=== PATIENT | male | born 1950 | race Two or more races ===

== ENCOUNTER → 2017-01-25 | Outpatient (CLI) | payer OTHER | LOC: FIMAGING 09:44 | PROVIDERS: ATTEND Internal Medicine | DX: R22.1 Localized swelling, mass and lump, neck (principal) ==

== ENCOUNTER → 2017-01-26 | Outpatient (CLI) | payer OTHER ==
[~2017-01-26] MED LIST: LIDOCAINE 1% 300 MG/30 ML SDV ONE
[2017-01-28 15:15] LABS: FINAL DIAGNOSIS See Comments; MICROSCOPIC DESCRIPTION See Comments
== END ==
LOC: FIMAGING 10:19
PROVIDERS: ATTEND Internal Medicine
PROC: BH4CZZZ Ultrasonography of Head and Neck (ICD-10-PCS; principal; 2017-01-26)
PROC: 0JB43ZX Excision of Right Neck Subcutaneous Tissue and Fascia, Percutaneous Approach, Diagnostic (ICD-10-PCS; principal; 2017-01-26)
DX: R22.1 Localized swelling, mass and lump, neck (principal)
CPT/HCPCS: 88184-90; 88185-91

== ENCOUNTER → 2017-04-06 | Outpatient (CLI) | payer OTHER, MEDICARE | LOC: FIMAGING 10:25 | PROVIDERS: ATTEND Internal Medicine | DX: R79.89 Other specified abnormal findings of blood chemistry (principal); Z85.810 Personal history of malignant neoplasm of tongue ==

== ENCOUNTER 2017-05-12 08:55 | Day surgery (SDC) | payer OTHER, MEDICARE ==
[~2017-05-12 08:55] MED LIST changes: -LIDOCAINE 1% 300 MG/30 ML SDV ONE; +cefOXitin SODIUM 2 GM in STERILE WATER INJ 21 ML IV ONE
[2017-05-12] MEDS ORDERED: LR 1,000 ML IV ONE (09:40)
[2017-05-12] MEDS ORDERED: BACITRACIN ZINC 14.2 GM OINTTUBE TP ONE (10:16)
[2017-05-12] MEDS ORDERED: LIDOCAINE 1% 300 MG/30 ML SDV ONE (10:17)
[2017-05-12] MEDS ORDERED: SODIUM BICARBONATE 10 MEQ/10 ML SYR IVP ONE (10:18)
[2017-05-12] MEDS ORDERED: BUPIVACAINE 0.5% 30 ML SDV ONE (10:19)
[2017-05-12] MEDS ORDERED: PROPOFOL 200 MG/20 ML VIAL ONE ×2 (11:27→11:39)
[2017-05-12] MEDS ORDERED: fentaNYL 100 MCG/2 ML INJ ONE (11:27)
[2017-05-12] MEDS ORDERED: LIDOCAINE 2% 5 ML SDV ONE (11:32)
[2017-05-12] MEDS ORDERED: ROCURONIUM 50 MG/5 ML VIAL ONE (11:33)
[2017-05-12] MEDS ORDERED: DEXAMETHASONE 4 MG/ML VIAL ONE (11:33)
[2017-05-12] MEDS ORDERED: ONDANSETRON 4 MG/2 ML VIAL IVP PRN (11:50)
[2017-05-12] MEDS ORDERED: LABETALOL HCL 5 MG/ML 20 ML MDV IVP PRN (11:50)
[2017-05-12] MEDS ORDERED: OXYCODONE/APAP 5/325 TAB PO PRN (11:50)
[2017-05-12] MEDS ORDERED: fentaNYL 100 MCG/2 ML INJ IVP PRN (11:50)
[2017-05-12] MEDS ORDERED: HYDROCODONE/APAP 5/325 TAB PO PRN (11:50)
[2017-05-12] MEDS ORDERED: NALOXONE HCL 0.4 MG/ML INJ IVP PRN (11:50)
[2017-05-12] MEDS ORDERED: LR 500 ML IV PRN (11:50)
[2017-05-12] MEDS ORDERED: ACETAMINOPHEN 500 MG TAB PO PRN (11:50)
[2017-05-12] MEDS ORDERED: PHENYLEPHRINE HCL 100 MCG/ML SYR IVP PRN (11:50)
[2017-05-12] MEDS ORDERED: HYDROmorphONE/DILAUDID 1 MG/ML INJ IVP PRN (11:50)
[2017-05-12] MEDS ORDERED: ALBUTEROL 3 ML DEYVIAL IH PRN (11:50)
[2017-05-12] MEDS ORDERED: METOCLOPRAMIDE 10 MG/2 ML VIAL IVP PRN (11:50)
[2017-05-12] MEDS ORDERED: PROMETHAZINE HCL 25 MG/ML INJ IVP PRN (11:50)
--- NOTE | 2017-05-12 11:50 | PDANEPAE ---
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 ANE Past Medical History - Cardiovascular History Hx Hypertension: Yes Hx Arrhythmias: No Hx Chest Pain: No Hx Coronary Artery / Peripheral Vascular Disease: No Hx CHF / Valvular Disease: No Hx Palpitations: No - Pulmonary History Hx COPD: No Hx Asthma/Reactive Airway Disease: No Hx Recent Upper Respiratory Infection: No Hx Oxygen in Use at Home: No Hx Sleep Apnea: No - Neurologic History Hx Cerebrovascular Accident: No Hx Seizures: No Hx Dementia: No - Endocrine History Hx Diabetes: No Hypothyroid: No Obesity: yes - Renal History Hx Renal Disorders: No - Liver History Hx Hepatic Disorders: No - Neurological & Psychiatric Hx Hx Neurological and Psychiatric Disorders: Yes - Cancer History Hx Cancer: Yes Cancer History Comment: oropharangeal cancer - Congenital Disorder History Hx Congenital Disorders: No - GI History GERD: moderate Hx Gastrointestinal Disorders: No - Surgical History Prior Surgeries: hernia 2014 ANE Review of Systems Review of systems is: negative Review of Systems: - Exercise capacity METS (RN): 4 METS ANE Patient History - Allergies Allergies/Adverse Reactions: No Allergies [NKDA] Allergy (Verified 05/10/17 14:34) - Home Medications Home medications: home medication list seen and reviewed Home Medications: Aspirin 325 mg (*) 650 05/12/17 [Last Taken 05/12/17] Atorvastatin Calcium 05/12/17 [Last Taken 05/12/17] CALCI-MIX 05/12/17 [Last Taken 05/12/17] IBUPROFEN 400 05/12/17 [Last Taken 05/12/17] Lisinopril 20 05/12/17 [Last Taken 05/12/17] Metoprolol Tartrate 25 05/12/17 [Last Taken 05/12/17] Multi-Vitamin Daily 05/12/17 [Last Taken 05/12/17] - NPO status NPO Since - Liquids (Date): 05/12/17 NPO Since - Liquids (Time): 06:30 NPO Since - Solids (Date): 05/11/17 NPO Since - Solids (Time): 23:00 - Anes Hx Anes Hx: no prior problems - Smoking Hx Smoking Status: Never smoked - Family Anes Hx Family Hx Anesthesia Complications: no ANE Labs/Vital Signs - Vital Signs Blood Pressure: 98/65 Heart Rate: 84 Respiratory Rate: 18 O2 Sat (%): 93 Height: 175.26 cm Weight: 89.358 kg ANE Physical Exam - Airway Neck exam: FROM Mallampati Score: Class 2 Mouth exam: normal dental/mouth exam - Pulmonary Pulmonary: no respiratory distress - Cardiovascular Cardiovascular: regular rate and rhythym - ASA Status ASA Status: III ANE Anesthesia Plan Anesthesia Plan: general endotracheal anesthesia Specialized Airway: video laryngoscope Urgent/Emergent Case: Casper whaley completed preop but documented later for safe timely pt care
--- NOTE | 2017-05-12 11:55 | POSTANESTH ---
Post Anesthetic Evaluation Cardiovascular Status: Normal, Stable Respiratory Status: Requires Airway Assist Level of Consciousness/Mental Status: Can Participate in Eval Pain Control: Adequate, Prn Tx Ordered Nausea/Vomiting Control: Adequate, Prn Tx Ordered Complications Possibly Related to Anesthesia: None Noted
[2017-05-12] MEDS ORDERED: SUGAMMADEX SODIUM 200 MG/2 ML VIAL IVP ONE (11:56)
[2017-05-12] MEDS ORDERED: ONDANSETRON 4 MG/2 ML VIAL ONE (11:56)
[2017-05-12] MEDS ORDERED: KETOROLAC 30 MG/1 ML SDV ONE (11:56)
[2017-05-12] MEDS ORDERED: PHENYLEPHRINE HCL 100 MCG/ML SYR ONE (12:04)
--- NOTE | 2017-05-12 12:13 | GIREPORT ---
[facility] Surgical Services - Endoscopy Department Patient Name: Ted Ochoa Procedure Date: 05/12/2017 9:31 AM Patient Type: Outpatient Attending MD/ ER Physician: Steve Cheung MD Procedure: Upper GI endoscopy Indications: Note dictated, consult appreciated. Expected feeding difficulties. Providers: Steve Cheung MD Referring MD: Zafar Bravo MD; Ronald Cohen MD; Akin Cadet MD; Jose Giordano Medicines: General Anesthesia Complications: No immediate complications. Description of Procedure: After obtaining informed consent, the endoscope was passed under direct vision. Throughout the procedure, the patient's blood pressure, pulse, and oxygen saturations were monitored continuously. The Endoscope was intro duced through the mouth, and advanced to the second part of duodenum. Findings: The examined esophagus was normal. The entire examined stomach was normal. Placement of an externally colt vable PEG with no T-fasteners was successfully completed. The external bumper was at the 2.5 cm marking on the tube. The examined duodenum was normal. Estimated Blood Loss: Estimated blood loss: none. Post Op Diagnosis: - 20 Fr PEG placement, as above. Recommendation: - o.k. to begin use of tube - Please follow the post-PEG recommendations including: a) remove dressing tomorrow at noon, and keep to open air. O.K. to show er tomorrow at noon. b) dry dressing over the G tube site as needed for oozing, and c) clean site as needed for crusting with half-strength hydrogen peroxi de - further management of PEG, such as tube feedings, home care, etc., as per oncologist - Thank you for allowing me to help in the management of this patient. Please rerefer pt. to see me, if we can be of further help (including removal in the future, if no longer using). Skye Wilson MD Steve Cheung MD 05/12/2017 12:12:53 PM This report has been signed electronicallyPeter MD Skye Number of Addenda: 0 Note Initiated On: 05/12/2017 9:31 AM [email or web address]
[2017-05-12 14:21] VITALS: PULSE 82; RESP 16; TEMP 98.1
--- NOTE | 2017-05-12 14:24 | POSTOPPROG ---
Post Op Note Date of Operation: 05/12/17 Surgeon: Zafar Bravo Anesthesiologist: Nohemy Anesthesia: GET(General Endotracheal) Pre-op Diagnosis: Oropharyngeal CA Post-op Diagnosis: Same Indication: Same Procedure: Port placement left chest, PEG tube placed by endoscopy Inf/Abcess present in the surg proc area at time of surgery?: No EBL: Minimal
--- NOTE | 2017-05-12 15:21 | GCON ---
[f rep ] CONSULTATION REFERRING PHYSICIAN: Zafar Bravo MD CHIEF COMPLAINT: I was kindly requested to see the patient by Dr. Zafar Bravo in consultation for a chief complaint of feeding difficulties. He is a 66 -year-old, white male who was recently found to have an oropharyngeal cancer. Because of its location, dysphagia is an issue, especially after he starts to begin to receive chemotherapy and radiation. He denies significant weight loss. He denies hematemesis. He denies fever, chills. PAST MEDICAL HISTORY: 1. As above. 2. Hypertension. 3. Elevated lipids. 4. Mention of chronic kidney disease. 5. Otherwise, noncontributory. ALLERGIES: No known drug allergies. SOCIAL HISTORY: He works for [employer]. FAMILY HISTORY: Negative for similar swallowing trouble. REVIEW OF SYSTEMS: Positive pertinent review of systems as per my HPI. Otherwise, a complete review of systems is negative. PHYSICAL EXAM: CONSTITUTIONAL: Nontoxic-appearing. VITAL SIGNS: Stable. SKIN: Warm, dry. EYES: Pupils equal, round, reactive to light and accommodation. Ear, nose, mouth and throat: Oropharynx without masses, moist mucosa. CARDIOVASCULAR: Normal S2, normal PMI. RESPIRATORY: Lungs clear to auscultation and percussion anteriorly. GASTROINTESTINAL: Abdomen soft, and nontender. NEUROLOGIC: Grossly nonfocal, cranial nerves grossly intact. PSYCHIATRIC: Orientation, insight appropriate. MUSCULOSKELETAL: Strength grossly normal throughout, normal station. LABORATORIES: Include a normal CBC. Normal basic metabolic panel, creatinine 1.2. Normal liver function tests. ASSESSMENT: Oropharyngeal cancer, with dysphagia expected from chemotherapy, radiation, etc. Because of this, I suspect he would benefit from a G-tube. Once recovered from the above, this can be removed. PLAN: 1. G-tube placement. Certainly, with his hypertension, report of kidney issues , elevated lipids, etc., he is at increased risk for this procedure. However, suspect the benefits outweigh the risks, and suspect he will do well. 2. Once placed, management of his G-tube (feedings, etc.) as per oncology and his primary caregivers. 3. Once recovered from the above process, where he is eating on his own, please feel free to rerefer him to see me, and I can remove his G-tube. Thank you for allowing me to help in the care of this patient. /[id number]/MODL MTDD
[2017-05-12 16:32] VITALS: BP 97/68; O2SAT 97
--- NOTE | 2017-05-13 21:26 | GOP ---
[f rep st] OPERATIVE REPORT DATE OF OPERATION: 05/12/2017 SURGEON: Zafar Bravo MD PREOPERATIVE DIAGNOSIS: Tongue cancer. POSTOPERATIVE DIAGNOSIS: Tongue cancer. PROCEDURE PERFORMED: Left subclavian port placement with fluoroscopic guidance. FINDINGS: good flow and position DESCRIPTION OF PROCEDURE: The patient was taken to the operating room where he received satisfactory general endotracheal anesthesia. He was placed in the supine position, prepped and draped in the usual sterile fashion. A single stick was made into the left subclavian vein. Guidewire was introduced. Position was confirmed with fluoroscopy. A subcu pocket was made in the anterior abdominal wall and the anterior chest wall in the 2nd intercostal space. Port tubing was passed from that pocket to the subclavian insertion site. It was trimmed to the appropriate length using fluoroscopic guidance and then introduced into the right atrium via the introducer sheath and dilator system which were removed. Good backflow was apparent. The catheter was flushed with heparin saline. Port was secured to the fascia with 3-0 Vicryl as was the pocket which was closed with 3-0 Vicryl for the subcu and a 4-0 Prolene subcuticular stitch for the skin. The entrance site was closed with Prolene mattress sutures. There were no complications. He was taken to the recovery room in good condition. /[id number]/MODL MTDD
== END 2017-05-12 16:30 | disposition home or self-care (01) ==
LOC: FSGY 08:55
PROVIDERS: ATTEND Surgery
PROC: 05H633Z Insertion of Infusion Device into Left Subclavian Vein, Percutaneous Approach (ICD-10-PCS; principal; 2017-05-12 11:00)
PROC: 0DJ08ZZ Inspection of Upper Intestinal Tract, Via Natural or Artificial Opening Endoscopic (ICD-10-PCS; 2017-05-12 11:00)
DX: C10.9 Malignant neoplasm of oropharynx, unspecified (principal); I10 Essential (primary) hypertension
CPT/HCPCS: 36556; 43235; 71045; 76001; B4087; C1788; J0694; J1100; J1642; J1885; J2370; J2405; J2704; J3010

== ENCOUNTER → 2017-07-06 | Outpatient (CLI) | payer OTHER, MEDICARE | LOC: FIMAGING 16:26 | PROVIDERS: ATTEND Nurse Practitioner | DX: R22.43 Localized swelling, mass and lump, lower limb, bilateral (principal) ==

== ENCOUNTER 2017-07-12 15:10 | Inpatient (IN) | payer OTHER, MEDICARE ==
--- NOTE | 2017-07-12 15:39 | EDPHY ---
H & P Stated Complaint: sent from cancer care with ekg showing new onset afib Time Seen by Provider: 07/12/17 15:22 HPI/ROS: CHIEF COMPLAINT: New onset atrial fibrillation, reported hypotension HISTORY OF PRESENT ILLNESS: The patient is referred from [facility] with new onset atrial fibrillation reported hypotension. The patient has a history of head neck cancer. He is currently undergoing chemotherapy and radiation. He does have a history of coronary artery disease and is status post stent x2. The patient reportedly has had a several week history of bilateral lower extremity swelling. The patient does report symptoms of mild orthopnea and dyspnea on exertion. He denies any pleuritic chest pain. REVIEW OF SYSTEMS: A comprehensive 10 point review of systems is otherwise negative aside from elements mentioned in the history of present illness. Source: Patient Exam Limitations: No limitations - Personal History Current Tetanus/Diphtheria Vaccine: Unsure - Medical/Surgical History Hx Asthma: No Hx Chronic Respiratory Disease: No Hx Diabetes: No Hx Cardiac Disease: Yes Hx Renal Disease: No Hx Cirrhosis: No Hx Alcoholism: No Hx HIV/AIDS: No Hx Splenectomy or Spleen Trauma: No Other PMH: cardiac stents/tongue cancer/feeding tube - Social History Smoking Status: Never smoked - Physical Exam Exam: General Appearance: Alert, no distress Eyes: Pupils equal and round no pallor or injection ENT, Mouth: Mucous membranes moist Respiratory: Rales bilateral lower lobes Cardiovascular: Tachycardic, regular Gastrointestinal: Abdomen is soft and nontender, no masses, bowel sounds normal , G-tube Neurological: 5/5 strength all 4 extremities Skin: Warm and dry, no rashes Musculoskeletal: Neck is supple nontender Extremities: 2+ bilateral lower extremity pitting edema with changes consistent with stasis dermatitis present Constitutional: Initial Vital Signs Temperature (C) 37 C 07/12/17 15:16 Heart Rate 122 H 07/12/17 15:16 Respiratory Rate 20 07/12/17 15:16 Blood Pressure 105/89 H 07/12/17 15:16 O2 Sat (%) 96 07/12/17 15:16 O2 Delivery Mode Room Air Allergies/Adverse Reactions: No Allergies [NKDA] Allergy (Verified 07/12/17 15:15) Home Medications: Medication Instructions Recorded Aspirin 325 mg (*) 650 05/12/17 Atorvastatin Calcium 05/12/17 CALCI-MIX 05/12/17 IBUPROFEN 400 05/12/17 Lisinopril 20 05/12/17 Metoprolol Tartrate 25 05/12/17 Multi-Vitamin Daily 05/12/17 Fentanyl 07/12/17 Lasix 07/12/17 morphINE 07/12/17 Medical Decision Making - Diagnostics Imaging Results: Imaging Impressions Chest X-Ray 07/12/17 15:46 Impression: Borderline-cardiomegaly with diskoid subsegmental atelectasis at the left lung base. Chest/Thorax CTA 07/12/17 16:08 Impression: 1. No visible pulmonary embolus. 2. Mild coronary artery atherosclerosis. 3. Additional findings as above. Findings discussed with Dr. Kg Gar on 07/12/2017 at 17:14. ED Course/Re-evaluation: The patient presents to the ED with new onset atrial fibrillation. The patient also has a several week history of bilateral lower extremity edema. The patient was noted to have a heart rate as high as 160 in the emergency department. He reportedly was hypotensive prior to arrival. The patient's chest x-ray demonstrated no evidence of significant heart failure. Given his hypoxemia and new onset atrial fibrillation with cancer history a CT pulmonary angiogram was performed which demonstrated no evidence of thromboembolic disease. The patient was started on a diltiazem drip for rate control. The patient will be admitted to the hospital for further evaluation and management of his new onset atrial fibrillation. Consultation was made with Dr. Ortiz from the hospitalist service who will admit the patient. Differential Diagnosis: Differential diagnosis considered includes atrial fibrillation with rapid ventricular response, pulmonary embolism, congestive heart failure, anemia, metabolic abnormality - Data Points Laboratory Results: Laboratory Results 07/12/17 15:51 07/12/17 15:51 07/12/17 07/12/17 07/12/17 15:51 15:51 15:51 WBC 5.43 10^3/uL 10^3/uL (3.80-9.50) RBC 2.39 10^6/uL L 10^6/uL (4.40-6.38) Hgb 8.3 g/dL L g/dL (13.7-17.5) Hct 24.8 % L % (40.0-51.0) MCV 103.8 fL H fL (81.5-99.8) MCH 34.7 pg H pg (27.9-34.1) MCHC 33.5 g/dL g/dL (32.4-36.7) RDW 22.4 % H % (11.5-15.2) Plt Count 86 10^3/uL L 10^3/uL (150-400) MPV 9.2 fL fL (8.7-11.7) Neut % (Auto) Not Reported Lymph % (Auto) Not Reported [place] % (Auto) Not Reported Eos % (Auto) Not Reported Baso % (Auto) Not Reported Nucleat RBC Rel Count 0.0 % % (0.0-0.2) Absolute Neuts (auto) Not Reported Absolute Lymphs (auto) Not Reported Absolute Monos (auto) Not Reported Absolute Eos (auto) Not Reported Absolute Basos (auto) Not Reported Absolute Nucleated RBC 0.00 10^3/uL 10^3/uL (0-0.01) Immature Gran % Not Reported Seg Neutrophils % 64 % % Band Neutrophils % 10 % % Lymphocytes % 8 % % Monocytes % 18 % % Immature Gran # Not Reported Absolute Seg Neuts 3.48 10^/uL 10^/uL (1.70-6.50) Absolute Band Neuts 0.54 10^3/uL 10^3/uL (0.00-0.70) Absolute Lymphocytes 0.43 10^3/uL L 10^3/uL (1.00-3.00) Absolute Monocytes 0.98 10^3/uL H 10^3/uL (0.30-0.80) Platelet Estimate DECREASED L (ADEQ) Polychromasia 1+ H Hypochromasia 1+ H Tear Drop Cells 1+ H Oval Macrocytes 1+ H Elliptocytes 1+ H PT INR Sodium 131 mEq/L L mEq/L (135-145) Potassium 3.7 mEq/L mEq/L (3.5-5.2) Chloride 89 mEq/L L mEq/L (97-110) Carbon Dioxide 34 mEq/l H mEq/l (22-31) Anion Gap 8 mEq/L mEq/L (8-16) BUN 20 mg/dL mg/dL (7-23) Creatinine 0.9 mg/dL mg/dL (0.7-1.3) Estimated GFR > 60 Glucose 87 mg/dL mg/dL (70-100) Calcium 8.7 mg/dL mg/dL (8.5-10.4) Troponin I < 0.012 ng/mL ng/mL (0.000-0.034) NT-Pro-B Natriuret Pep 1140 pg/mL H pg/mL (0-125) TSH Pending 07/12/17 15:48 WBC RBC Hgb Hct MCV MCH MCHC RDW Plt Count MPV Neut % (Auto) Lymph % (Auto) Custer % (Auto) Eos % (Auto) Baso % (Auto) Nucleat RBC Rel Count Absolute Neuts (auto) Absolute Lymphs (auto) Absolute Monos (auto) Absolute Eos (auto) Absolute Basos (auto) Absolute Nucleated RBC Immature Gran % Seg Neutrophils % Band Neutrophils % Lymphocytes % Monocytes % Immature Gran # Absolute Seg Neuts Absolute Band Neuts Absolute Lymphocytes Absolute Monocytes Platelet Estimate Polychromasia Hypochromasia Tear Drop Cells Oval Macrocytes Elliptocytes PT 13.5 SEC SEC (12.0-15.0) INR 1.01 (0.83-1.16) Sodium Potassium Chloride Carbon Dioxide Anion Gap BUN Creatinine Estimated GFR Glucose Calcium Troponin I NT-Pro-B Natriuret Pep TSH Medications Given: Diltiazem/Dextrose (Diltiazem 125mg/125ml (Premix)) 125 mls @ 0 mls/hr IV CONT JING; Titrate PRN Reason: Protocol Stop: 01/08/18 17:59 Last Admin: 07/12/17 17:53 Dose: 125 mls Departure - Departure Disposition: [facility] Inpatient Acute Clinical Impression: Atrial fibrillation with RVR Condition: Good Referrals: Frances Kebede MD [Primary Care Provider] - As per Instructions
--- NOTE | 2017-07-12 15:49 | CPEKG ---
Heart Rate: 114 RR Interval: 526 QRSD Interval: 92 QT Interval: 328 QTC Interval: 452 QRS [place]: 25 T Wave [place]: 45 EKG Severity - ABNORMAL ECG - EKG Impression: ATRIAL FIBRILLATION, V-RATE 93-146 EKG Impression: MULTIFORM VENTRICULAR PREMATURE COMPLEXES Electronically Signed By: Kg Gar 12-Jul-2017 17:02:46
[2017-07-12 15:59] LABS: PLATELET COUNT 86 10^3/uL (150-400)
[2017-07-12] MEDS ORDERED: IOPAMIDOL (ISOVUE 370) 100 ML BTL IV ONE (16:19)
[2017-07-12] MEDS ORDERED: DILTIAZEM 125 MG in D5W 125 ML IV ONE (17:19)
[2017-07-12 17:28] LABS: INR 1.01 (0.83-1.16); PROTIME(PATIENT) 13.5 SEC (12.0-15.0)
[2017-07-12] MEDS ORDERED: ONDANSETRON DISINTEGRATING 4 MG TAB PO PRN (17:43)
[2017-07-12] MEDS ORDERED: ONDANSETRON 4 MG/2 ML VIAL IVP PRN (17:43)
[2017-07-12] MEDS ORDERED: ACETAMINOPHEN 325 MG TAB PO PRN (17:43)
[2017-07-12] MEDS ORDERED: NS W/ 20 KCl/L 1,000 ML IV SCH (17:45)
[2017-07-12] MEDS ORDERED: DILTIAZEM 125 MG in D5W 125 ML IV SCH (17:45)
[2017-07-12] MEDS ORDERED: METOPROLOL TARTRATE 25 MG TAB PO ONE (17:47)
[2017-07-12] MEDS ORDERED: DILTIAZEM 30 MG TAB PO SCH (18:00)
[2017-07-12] MEDS ORDERED: DILTIAZEM HCL/D5W 125 ML IV SCH (18:00)
[2017-07-12] MEDS ORDERED: MAGNESIUM HYDROXIDE 30 ML UDCUP TUBE PRN (19:04)
[2017-07-12] MEDS ORDERED: SCOPOLAMINE HYDROBROMIDE 1 MG/3 DAYS PATCH TD PRN (19:04)
[2017-07-12] MEDS ORDERED: fentaNYL 25 MCG PATCH TD PRN (19:04)
[2017-07-12] MEDS ORDERED: NON-FORMULARY NEW DRUG (Ranitidine Hcl [Zantac] 150 MG) TUBE PRN (19:04)
[2017-07-12] MEDS ORDERED: MORPHINE SULFATE TUBE PRN (19:04)
[2017-07-12] MEDS ORDERED: [UNRECOGNIZED DRUG - OTHER] PO SCH (19:15)
[2017-07-12] MEDS ORDERED: ALOE PO SCH ×2 (19:15→20:00)
[2017-07-12] MEDS ORDERED: [UNRECOGNIZED DRUG - OTHER] PO SCH (20:00)
[2017-07-12] MEDS ORDERED: ACETAMINOPHEN 325 MG TAB TUBE PRN (20:00)
--- NOTE | 2017-07-12 20:00 | PDGENHP ---
History and Physical - Chief Complaint Acute lower extremity edema - History of Present Illness Primary oncologist: Dr. Frances Kebede HPI: 67-year-old male presenting with acute lower extremity edema characterized as swelling with associated skin color changes located in the distal bilateral lower extremities with onset of symptoms approximately 3 weeks ago and duration persistent thereafter. He also reports that he has had ongoing significant mucus production in his mouth and this has been somewhat alleviated by both spitting the mucus up as well as a scopolamine patch which was recently initiated. He reports the mucus has been particularly pervasive since June 28. He reports that some of his pills he has been unable to crush but he has not been able to swallow the pills so he has not been adherent to oral pill medications. He reports a recent eye infection and he is currently on eyedrops with some relief. On the day of presentation, the patient was at radiation and his heart rate was noted to be in the 150s, and he was reportedly hypotensive. He reports that he has been adherent to his home tube feeds, and he has not recently missed any. He reports that his urine output has been regular and he denies any exertional shortness of breath. History Information - Allergies/Home Medication List Allergies/Adverse Reactions: No Allergies [NKDA] Allergy (Verified 07/12/17 15:15) Home Medications: Aspirin [Aspirin 325 mg (*)] 325 mg PO DAILY 05/12/17 [Last Taken 07/10/17] Ibuprofen [Motrin (*)] 200 - 400 mg PO Q6H PRN 05/12/17 [Last Taken 07/09/17] Metoprolol Tartrate [Lopressor 25 mg (*)] 25 mg PO DAILY 05/12/17 [Last Taken ] Furosemide [Lasix 20 MG (*)] 10 - 20 mg PO DAILY PRN 07/12/17 [Last Taken ] Magnesium Hydroxide [Milk of Magnesia] 30 ml PO DAILY PRN 07/12/17 [Last Taken 07/11/17] Morphine Sulfate 20 - 40 mg PO Q4H PRN 07/12/17 [Last Taken 07/12/17 11:00] Polymyxin B Sulf/Trimethoprim [Polymyxin B-Tmp Eye Drops] 1 drop EACHEYE DAILY 07/12/17 [Last Taken 07/12/17] Pot Sorbate/Malto/Aloe/Hanson Ps [Oramagicrx Oral Rinse] 5 ml PO AD 07/12/17 [ Last Taken 07/12/17] Ranitidine HCl [Zantac] 150 mg PO BID PRN 07/12/17 [Last Taken 2 Weeks Ago ~] Scopolamine Hydrobromide [Scopolamine Patch] 1 patch TD Q72H PRN 07/12/17 [Last Taken 07/12/17] Tamsulosin HCl [Flomax 0.4 MG (*)] 0.4 mg PO DAILY 07/12/17 [Last Taken 07/11/17 ] fentaNYL [Duragesic 25 MCG Patch (*)] 25 mcg TD Q72H 07/12/17 [Last Taken ] I have personally reviewed and updated: family history, medical history, social history, surgical history - Past Medical History Additional medical history: 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 Reported history of abnormal heartbeat. Chronic kidney disease stage 3. Hypertension. Hyperlipidemia. Recent tear duct infection. Chronic pain with continuous opiate dependency. Coronary artery disease with cardiac stents - Surgical History Additional surgical history: Umbilical hernia repair. Port placement. Peg placement - Family History Additional family history: No family history of dysphagia or cardiac arrhythmias - Social History Smoking Status: Never smoked Alcohol Use: None Drug Use: None Additional social history: Normally independent in his ADLs, sedentary work Review of Systems Review of Systems: ROS: 10pt was reviewed & negative except for what was stated in HPI & below EENMT: Reports: other (Mucus production) Cardiac: Reports: edema (Bilateral lower extremity) Skin: Reports: other (Bilateral lower extremities) Physical Exam Physical Exam: Temp Pulse Resp BP Pulse Ox 37.0 C 89 20 104/68 96 07/12/17 19:20 07/12/17 19:20 07/12/17 19:20 07/12/17 19:20 07/12/17 19:20 Constitutional: no apparent distress, not in pain, chronically ill appearing, uncomfortable Eyes: PERRL, anicteric sclera, EOMI Ears, Nose, Mouth, Throat: moist mucous membranes, hearing normal, ears appear normal, no oral mucosal ulcers Cardiovascular: systolic murmur (1/6 at the sternum), irregularly irregular, tachycardia, edema (2+ bilateral lower extremities) Respiratory: no respiratory distress, no rales or rhonchi, clear to auscultation Gastrointestinal: normoactive bowel sounds, soft, non-tender abdomen, no palpable masses, other (Peg tube in place) Skin: other (Non blanchable red skin bilateral lower extremities, confluent from the ankle to the mid calf) Neurologic: AAOx3, sensation intact bilaterally, No weakness, No facial droop Psychiatric: interacting appropriately, not anxious, not encephalopathic, thought process linear Lab Data & Imaging Review 07/12/17 15:51 07/12/17 15:51 WBC 5.43 10^3/uL (3.80-9.50) 07/12/17 15:51 RBC 2.39 10^6/uL (4.40-6.38) L 07/12/17 15:51 Hgb 8.3 g/dL (13.7-17.5) L 07/12/17 15:51 Hct 24.8 % (40.0-51.0) L 07/12/17 15:51 MCV 103.8 fL (81.5-99.8) H 07/12/17 15:51 MCH 34.7 pg (27.9-34.1) H 07/12/17 15:51 MCHC 33.5 g/dL (32.4-36.7) 07/12/17 15:51 RDW 22.4 % (11.5-15.2) H 07/12/17 15:51 Plt Count 86 10^3/uL (150-400) L 07/12/17 15:51 MPV 9.2 fL (8.7-11.7) 07/12/17 15:51 Neut % (Auto) Not Reported 07/12/17 15:51 Lymph % (Auto) Not Reported 07/12/17 15:51 [place] % (Auto) Not Reported 07/12/17 15:51 Eos % (Auto) Not Reported 07/12/17 15:51 Baso % (Auto) Not Reported 07/12/17 15:51 Nucleat RBC Rel Count 0.0 % (0.0-0.2) 07/12/17 15:51 Absolute Neuts (auto) Not Reported 07/12/17 15:51 Absolute Lymphs (auto) Not Reported 07/12/17 15:51 Absolute Monos (auto) Not Reported 07/12/17 15:51 Absolute Eos (auto) Not Reported 07/12/17 15:51 Absolute Basos (auto) Not Reported 07/12/17 15:51 Absolute Nucleated RBC 0.00 10^3/uL (0-0.01) 07/12/17 15:51 Immature Gran % Not Reported 07/12/17 15:51 Seg Neutrophils % 64 % 07/12/17 15:51 Band Neutrophils % 10 % 07/12/17 15:51 Lymphocytes % 8 % 07/12/17 15:51 Monocytes % 18 % 07/12/17 15:51 Immature Gran # Not Reported 07/12/17 15:51 Absolute Seg Neuts 3.48 10^/uL (1.70-6.50) 07/12/17 15:51 Absolute Band Neuts 0.54 10^3/uL (0.00-0.70) 07/12/17 15:51 Absolute Lymphocytes 0.43 10^3/uL (1.00-3.00) L 07/12/17 15:51 Absolute Monocytes 0.98 10^3/uL (0.30-0.80) H 07/12/17 15:51 Platelet Estimate DECREASED (ADEQ) L 07/12/17 15:51 Polychromasia 1+ H 07/12/17 15:51 Hypochromasia 1+ H 07/12/17 15:51 Tear Drop Cells 1+ H 07/12/17 15:51 Oval Macrocytes 1+ H 07/12/17 15:51 Elliptocytes 1+ H 07/12/17 15:51 PT 13.5 SEC (12.0-15.0) 07/12/17 15:48 INR 1.01 (0.83-1.16) 07/12/17 15:48 Sodium 131 mEq/L (135-145) L 07/12/17 15:51 Potassium 3.7 mEq/L (3.5-5.2) 07/12/17 15:51 Chloride 89 mEq/L (97-110) L 07/12/17 15:51 Carbon Dioxide 34 mEq/l (22-31) H 07/12/17 15:51 Anion Gap 8 mEq/L (8-16) 07/12/17 15:51 BUN 20 mg/dL (7-23) 07/12/17 15:51 Creatinine 0.9 mg/dL (0.7-1.3) 07/12/17 15:51 Estimated GFR > 60 07/12/17 15:51 Glucose 87 mg/dL (70-100) 07/12/17 15:51 Calcium 8.7 mg/dL (8.5-10.4) 07/12/17 15:51 Troponin I < 0.012 ng/mL (0.000-0.034) 07/12/17 15:51 NT-Pro-B Natriuret Pep 1140 pg/mL (0-125) H 07/12/17 15:51 TSH 0.341 uIU/mL (0.465-4.680) L 07/12/17 15:51 Visualized and Interpreted Chest x-ray results: Yes Chest X-Ray results: other (Atelectasis left) Visualized and Interpreted EKG results: Yes EKG Interpretation: Positive for: other (Atrial fibrillation) Assessment & Plan Assessment: 67-year-old male presenting with new diagnosis of atrial fibrillation with acute rapid ventricular response Plan: 1. Atrial fibrillation with acute rapid ventricular response. New problem, further workup indicated. Unclear etiology, potentially provoked by chemo and radiation treatment for nasopharyngeal carcinoma -I suspect that this is the cause of his bilateral lower extremity edema with resultant cardiac output and fluid accumulation, no overt CHF on chest imaging at the present time -attempt chemical cardioversion with diltiazem and rate control on drip overnight -administer metoprolol tartrate 25 mg via PEG tube and attempt to wean off of drip, unclear whether patient was taking metoprolol tartrate prior to presentation as he reports he was not taking some of his oral medications and this was listed on his home med list -administer 1 dose of systemic anticoagulation now in case the patient requires DC cardioversion tomorrow with transesophageal echocardiogram -get echocardiogram -get TSH level -monitor troponin level -monitor on telemetry -get cardiac consultation in a.m. If he has not chemically cardioverted 2. Nasopharyngeal carcinoma. Currently undergoing chemo on radiation treatment -continue tube feeds -continue scopolamine patch -ensure that any new medications can be administered through the PEG tube 3. Chronic kidney disease stage 3. Creatinine currently 0.9, continue to monitor 4. Pancytopenia secondary to chemotherapy. Check fecal occult blood to ensure that systemic anticoagulation is safe, monitor platelet level and hemoglobin level 5. Coronary artery disease. Chronic, hold aspirin given systemic anticoagulation Diet. Tube feeds, hold in a.m. In case patient needs transesophageal echocardiogram with DC cardioversion Code. Full per patient, his daughter Ronaldo Ochoa is his MD POA Prophylaxis. Currently on systemic anticoagulation Disposition. Anticipated discharge is 07/13, pending clinical resolution of conditions outlined above. I have discussed patient's presentation with Dr. Donny Gar, he and I both agree the patient warrants rate and rhythm control given that this is a new diagnosis of atrial fibrillation.
[2017-07-12] MEDS: METOPROLOL TARTRATE 25 MG TAB TUBE SCH (20:41)
[2017-07-12] MEDS: morphINE 10 MG/0.5 ML UDSYR TUBE PRN (20:42)
[2017-07-12] MEDS: ENOXAPARIN 80 MG/0.8 ML SYR SC SCH (20:51)
[2017-07-12] MEDS ORDERED: METOPROLOL TARTRATE 25 MG TAB PO SCH (21:00)
[2017-07-13] MEDS: morphINE 10 MG/0.5 ML UDSYR TUBE PRN (01:36)
[2017-07-13 04:24] LABS: PLATELET COUNT 87 10^3/uL (150-400)
[2017-07-13] MEDS: METOPROLOL TARTRATE 25 MG TAB TUBE SCH ×2 (08:50→19:49)
[2017-07-13] MEDS: FAMOTIDINE 20 MG TAB TUBE PRN (08:51)
[2017-07-13] MEDS: TAMSULOSIN HCL 0.4 MG CAP PO SCH (08:51)
[2017-07-13] MEDS: POLYMYXIN B SULFATE/TMP 10 ML OPHT.BTL EACHEYE SCH (09:03)
[2017-07-13] MEDS ORDERED: DILTIAZEM HCL/D5W 125 ML IV SCH ×2 (09:30→10:00)
--- NOTE | 2017-07-13 10:01 | ECHO ---
[email or web address] [address] [address] Main: [phone] Fax: Transthoracic Echocardiogram Name: ARIANA HAINES MR#: [id number] Study Date: 07/13/2017 Study Time: 07:55 AM Date of : 1950 Age: 67 year(s) Height: 177.8 cm (70 in.) Weight: 84.37 kg (186 lb.) BSA: 2.02 m2 Gender: Male Examination: Echo Indication: Evaluate new a fib Image Quality: Contrast: Requested by: Jesus Manuel Ortiz BP: 95 mmHg/64 mmHg Heart Rate: Rhythm: Indication: Evaluate new a fib Procedure Staff Certified Alcohol Counselor: Dorothea Cabrera [facility] Reading Physician: Emi Guillen MD Requesting Provider: Conclusions: Normal size left ventricle. Low normal left ventricular systolic function. The ejection fraction is visually estimated to be 50 %. No regional wall motion abnormality. Normal size right ventricle. Normal RV function. The left atrium is severely dilated. The right atrium is mildly to moderately dilated. Moderate mitral valve regurgitation is present. Mild tricuspid regurgitation is present. Right ventricular systolic pressure measures 28mmHg. No prior echocardiogram. Recommend surveillance echocardiogram in 1-2 years to follow mitral regurgitation. Measurements: Chambers Valvular Assessment AV/MV Valvular Assessment TV/PV Normal Normal Normal Name Value Range Name Value Range Name Value Range Ao Johana (2D): 3.4 cm (1.4 cm-2.6 AV Vmax: 1.36 m/s (1 m/s-1.7 TR Vmax: 2.39 mm/s ( - ) cm) m/s) TR PGmax: 23 mmHg ( - ) IVSd (2D): 0.9 cm (0.6 cm-1.1 AV maxP mmHg ( - ) syst. PAP: 28 mmHg ( - ) cm) AV meanP mmHg ( - ) PV Vmax: 1.07 m/s (0.6 m/s-0.9 LVDd (2D): 5.3 cm (4.2 cm-5.9 LVOT Vmax: 0.80 m/s (0.7 m/s-1.1 m/s) cm) m/s) PV PGmax: 5 mmHg ( - ) LVDs (2D): 4.0 cm (2.1 cm-4 EDUARDO (Vmax): 2.0 cm2 ( - ) cm) EDUARDO (VTI): 2.4 cm ( - ) LVPWd (2D): 0.8 cm (0.6 cm-1 MV E Vmax: 1.03 m/s ( - ) cm) MV PHT: 0.051 s ( - ) LVOTd 2.1 cm 2.1 cm mm MVA (PHT): 4.3 s ( - ) LVEF (BP): 45 % (>=55 %) Patient: ARIANA HAINES Study Date: 07/13/2017 Page 1 of 2 07:55 AM Visual EF: 50 % RVDd(2D): 3.6 cm (1.9 cm-3.8 cmmm) Continued Measurements: Chambers Valvular Assessment AV/MV Valvular Assessment TV/PV Name Value Name Value Name Value LADs: 4.6 cm MV DecTime: 190 m/s CVP (est.): 5 mmHg LADs Lon.8 cm MV E/E' Septal: 9.40 LA Area: 32.7 cm2 MV E/E' Lateral: 9.20 LA Volume: 130 ml LA Volume Index: 64.4 ml/m2 RA Area: 24.9 cm2 Additional Vessels Name Value Ao Ascendin.0 cm Inferior Vena Cava: 2.0 cm Findings: Left Ventricle: Normal size left ventricle. No LV hypertrophy. Low normal left ventricular systolic function. The ejection fraction is visually estimated to be 50 %. No regional wall motion abnormality. Right Ventricle: Normal size right ventricle. Normal RV function. Left Atrium: The left atrium is severely dilated. Right Atrium: The right atrium is mildly to moderately dilated. Mitral Valve: The mitral valve is normal in appearance. Moderate mitral valve regurgitation is present. No mitral stenosis is present. Aortic Valve: The aortic valve is normal in appearance. Aortic sclerosis is present. No aortic valve stenosis is present. There is no aortic valve regurgitation. Tricuspid Valve: The tricuspid valve appears normal. Mild tricuspid regurgitation is present. Right ventricular systolic pressure measures 28mmHg. Pulmonic Valve: The pulmonic valve is normal in appearance and function. IVC: The IVC is normal sized. Pericardium: No pericardial effusion. No pleural effusion. (No Signature Object) Patient: ARIANA HAINES Study Date: 07/13/2017 Page 2 of 2 07:55 AM [id number]
[2017-07-13] MEDS: ENOXAPARIN 80 MG/0.8 ML SYR SC SCH (10:03)
[2017-07-13] MEDS ORDERED: FUROSEMIDE 40 MG/4 ML VIAL IVP ONE (12:29)
[2017-07-13] MEDS ORDERED: DIGOXIN 500 MCG/2 ML AMP IVP ONE (12:58)
[2017-07-13] MEDS ORDERED: PROTOCOL MAGNESIUM 1 DOSE IV PRN (13:52)
[2017-07-13] MEDS ORDERED: PROTOCOL POTASSIUM 1 DOSE MISC PRN (13:52)
[2017-07-13] MEDS ORDERED: POTASSIUM CL 10 MEQ TAB PO ONE (14:00)
--- NOTE | 2017-07-13 14:03 | GCON ---
[f rep st] CONSULTATION CARDIOLOGY CONSULTATION. REFERRING PHYSICIAN: Henri Osborne MD PRIMARY COMMUNICATION SPEC: Dr. Frances Kebede. REASON FOR CONSULTATION: We are asked by Dr. Osborne to evaluate the patient for his new diagnosis of AFib with rapid ventricular rates. 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 Additionally, he has been noting at least 3 weeks of lower extremity edema. He reports he was started on p.o. Lasix as an outpatient. Despite this therapy, he has not noted any significant improvement. He reports he is active with his ADLs and has not noted any dyspnea, PND, orthopnea, palpitations, chest pains, presyncope, syncope. He reports he just completed his last treatment of radiation and has also completed chemotherapy which is now considered curative. PAST MEDICAL HISTORY: 1. Nasopharyngeal cancer status post chemotherapy and radiation with recent completion of treatment. 2. History of NH 10 years ago with PCI, unknown vessels. He reports this was done in [place]. 3. History of chronic kidney disease, stage 3. Current creatinine 0.9. 4. Hypertension. 5. Dyslipidemia. 6. Recent tear duct infection. 7. Chronic pain with continuous opiate dependency. PAST SURGICAL HISTORY: 1. Umbilical hernia repair. 2. Port placement. 3. PEG placement. FAMILY HISTORY: No family history of cardiac arrhythmias. SOCIAL HISTORY: Patient is a never smoker. He does not drink alcohol. He is currently on FMLA from his job with the [email or web address]. REVIEW OF SYSTEMS: A complete 10-point review of systems was obtained. Additional information includes increased mucus production after the initiation of chemotherapy. He has to clear his throat quite a bit. He denies any fever or chills, dysuria, hematuria, hematochezia, or melena. He is not taking p.o., and only swallows his 1 pill, Flomax; the rest he will take by tube. He had a PEG tube placement during the initiation of his cancer treatments. PHYSICAL EXAMINATION: VITAL SIGNS: BP of 92/62, heart rate 85, respirations 18 , O2 saturation 96% on room air, temp of 98.5 degrees Fahrenheit. GENERAL: He is a very pleasant male, appearing pale, but in no apparent distress. HEENT: Normocephalic, atraumatic. Eyes are without PERRL. HEART: Irregularly irregular with controlled ventricular rates. LUNGS: Clear to auscultation bilaterally. ABDOMEN: Soft with diminished bowel sounds. SKIN: Warm. EXTREMITIES: He has 2+ to 3+ pitting edema and erythematous changes to his anterior shins bilaterally. DATA REVIEWED: 1. I discussed the patient's care with Dr. Osborne. 2. WBC 5.26, hemoglobin 7.7, hematocrit 22.6, platelet count of 87. BMP with sodium 133, potassium 3.4, chloride 90, CO2 of 35, BUN 16, creatinine 0.8, glucose of 76. Troponin less than 0.012, then 0.711, then less than 0.012. NT- proBNP of 1140. TSH of 0.341. 3. A 12-lead ECG, personally interpreted, demonstrates atrial fibrillation with controlled ventricular rates and 1 PVC noted. 4. Echo from 07/12/2017, reveals EF of 50 and normal RV size and function. LA is severely dilated. There is [id number] dilated RA, RVSP of 28. 5. CTA from 07/12 of chest shows no PE, mild CAD. Chest x-ray shows borderline cardiomegaly, and there is discoid subsegmental atelectasis near the base. IMPRESSION AND PLAN: The patient is a 67-year-old male who is admitted with new onset atrial fibrillation and worsening peripheral edema. 1. Atrial fibrillation. He has somewhat elevated rates, despite being on diltiazem GTT. Due to some low blood pressures, diltiazem will be held, and he will be given IV digoxin. His CHADS-VASc is at least 3, given age, hypertension , and known coronary atherosclerosis. We discussed options for anticoagulation , and patient is agreeable to starting Eliquis therapy. We discussed treatment options, including accelerated ANDREZ-guided cardioversion. Given his recent radiation and chemo and inability to swallow without odynophagia, we discussed it may be best practice to allow for 4-6 weeks of anticoagulation and proceed to cardioversion without ANDREZ. This would necessitate compliant usage of Eliquis to which he is agreeable. 2. Edema. He reports having negative Dopplers with his oncologist. I do not have this record at this time. He has bilateral symmetrical edema that is not painful on palpation. He has some erythematous changes that may be suggestive of drug reaction. Another possibility may be mild congestive heart failure from rapid ventricular rates. He will be started on IV Lasix at this time. 3. Nasopharyngeal carcinoma. He reports recently completing treatments for this. Given that we will not be proceeding to ANDREZ-guided cardioversion, he will be started back on his tube feeds today. 4. Depressed TSH. We will check a free T4. 5. Chronic kidney disease. His creatinine is stable at this time. 6. Pancytopenia. He has no evidence of overt bleeding. He will be started on Eliquis currently. 7. History of coronary artery disease. This is managed in the outpatient setting with metoprolol and aspirin. Consideration should be taken to start a statin in the outpatient setting. 8. Hypokalemia. He will be placed on repletion protocol. /[id number]/MODL MTDD
[2017-07-13] MEDS ORDERED: POTASSIUM CL 20 MEQ/15 ML UDCUP TUBE ONE (14:15)
--- NOTE | 2017-07-13 14:28 | HOSPPROG ---
Hospitalist Progress Note Assessment/Plan: #New onset Afib #Pedal Edema #Mild Hypotension, likely due to Cardizem #Nasopharyngeal Carcinoma #Dysphagia with chronic PEG tube #Pancytopenia, Macrocytosis #Hypokalemia #Questions Hyperthyroidism #chronic renal failure, stage III Plan: the pt is still in Afib Cards to see to determine if cardioversion is an option Await TTE Lasix May benefit from agent other than CCB Check Thyroid studies transfuse blood products prn. May consider targeting a Hgb above 8 pending clinical course check B12, folate Subjective: requesting to see a Outpatient Interviewing Clerk. still in Afib. no cp or SOB Objective: Vital Signs Temp Pulse Resp BP Pulse Ox 36.9 C 111 H 18 92/62 L 96 07/13/17 11:58 07/13/17 13:13 07/13/17 11:58 07/13/17 11:58 07/13/17 11:58 Laboratory Results 07/13/17 03:40 07/13/17 03:40 07/12/17 07/13/17 07/14/17 05:59 05:59 05:59 Intake Total 640 Output Total 900 200 Balance -260 -200 PT 13.5 SEC (12.0-15.0) 07/12/17 15:48 INR 1.01 (0.83-1.16) 07/12/17 15:48 - Physical Exam Constitutional: no apparent distress, appears nourished Eyes: PERRL, EOMI Ears, Nose, Mouth, Throat: moist mucous membranes Cardiovascular: irregularly irregular, edema, No regular rate and rhythym Respiratory: no respiratory distress, reduced air movement Gastrointestinal: normoactive bowel sounds, soft, non-tender abdomen Skin: warm Neurologic: AAOx3 Psychiatric: interacting appropriately, not anxious, not encephalopathic Lymph, Heme, Immunologic: No petechiae ICD10 Worksheet Patient Problems: Problems Problem Status Onset Atrial fibrillation with RVR Acute
--- NOTE | 2017-07-13 14:56 | ASMTCASEMG ---
Living Arrangements What is your living Answers: Alone arrangement? Who do you live with? Type Of Residence What kind of residence do Answers: House you live in? Discharge Plan Comments Coordination Status Comments Notes: Pt is a 67 y/o man admitted for afib and neck/throat cancer. Pt will most likely d/c independent when medically stable. No therapies ordered at this time. CM available for changes. Plan: Independent Date Signed: 07/13/2017 02:55 PM Electronically Signed By:MINNIE Bowens
--- NOTE | 2017-07-13 15:44 | GCON ---
[f rep st] CONSULTATION MEDICAL ONCOLOGY FOLLOWUP CONSULTATION RECOMMENDATIONS: 1. Consider transfusion to keep the patient's hemoglobin above 8. 2. If indicated from a cardiology standpoint, I would think it is appropriate to attempt to cardiove rt the patient. His combined modality chemotherapy and radiation concluded on the June . The patient's cancer is in recovery phase at the moment. He is trying to transition from G-tube f eeding to oral nutrition once again. Although his oropharynx is likely still irritated, I think it i s reasonable to try to cardiovert him if it is medically indicated otherwise. 3. The patient's platelet count of 87,000 is adequate, and I do not believe he requires platelet tra nsfusion at this time. 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 He finished his combined modality therapy on the June. This included induction treatm ent with Taxol, carboplatin, followed by combined modality therapy with radiation plus cisplatin. In itial staging was IVB based on N3 lymph nodes. He does not have evidence of distant metastatic disea se. He began to notice swelling in his lower extremities and not feeling very well. He went to the radiation center for re-evaluation yesterday. He was then referred up to my partner, Dr. Frances sofia, for further evaluation. The patient was found to have an irregular heartbeat and some hypotension . Because of new onset of atrial fibrillation, and hemodynamic compromise, he was asked to go to the emergency room for further evaluation. The patient is now admitted and being evaluated for cardiove rsion. The patient has finished his definitive therapy at this time. Overall, results of therapy ar e not known yet since he is still too fresh from treatment. However, it is expected that he would do fairly well because the tumor is HPV positive. These tend to have better prognosis than tumors that are HPV negative. PAST MEDICAL HISTORY: Remarkable for hypertension and elevated cholesterol. PAST SURGICAL HISTORY: The patient does not have significant past surgical history other than G-tube placement. FAMILY HISTORY: Father was lost at sea. His mother is alive at age 93. He has one brother in good health and 2 children in good health. 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 REVIEW OF SYSTEMS: Remarkable for fatigue, odynophagia and lower extremity edema. He denies any genaro sea or vomiting. He is having regular bowel movements. He is continuing to get most of his nutritio n through his gastric feeding tube. He denies any chest pain. Ten-system review is otherwise unrema rkable. PHYSICAL EXAMINATION: GENERAL: Reveals an alopecic white male who is anxious to get his atrial fibr illation treated. HEENT: Shows pallor. LUNGS: Show no rales at this time. CARDIAC: Shows an irr egular regular rhythm. ABDOMEN: Shows a gastric feeding tube, and he has normal bowel sounds. His lower extremities show 3+ edema with some erythema. His CBC today shows a white count of 5.26 with a hemoglobin of 7.7 and a platelet count of 87,000. H is potassium is slightly low at 3.4, and albumin is slightly low at 2.8. Thank you very much for allowing us to participate in this pleasant gentleman's care. We look forwar d to assisting with his management during this hospitalization and beyond. /[id number]/MODL
[2017-07-13] MEDS: DIGOXIN 500 MCG/2 ML AMP IVP SCH ×3 (16:03→22:57)
--- NOTE | 2017-07-13 16:15 | PDMN ---
Medical Necessity Medical necessity: change to IP; los>2mn for new onset, and continued, afib, pedal edema, mild hypotension; requires cardiology consult, possible CV, and thyroid studies; comorbid nasopharyngeal carcinoma w/peg tube, pancytopenia, hypokalemia, CRF st 3; per order and progress note 07/13/17
[2017-07-13] MEDS: APIXABAN 5 MG TAB TUBE SCH (19:49)
[2017-07-13] MEDS: ALOE PO SCH (20:03)
[2017-07-13] MEDS: [UNRECOGNIZED DRUG - OTHER] PO SCH (20:03)
[2017-07-13] MEDS ORDERED: APIXABAN 5 MG TAB PO SCH (21:00)
[2017-07-13] MEDS ORDERED: POTASSIUM CL 20 MEQ/15 ML UDCUP PO ONE (22:41)
[2017-07-14 03:58] LABS: PLATELET COUNT 85 10^3/uL (150-400)
[2017-07-14] MEDS ORDERED: fentaNYL 25 MCG PATCH TD SCH (08:00)
[2017-07-14] MEDS: TAMSULOSIN HCL 0.4 MG CAP PO SCH (08:17)
[2017-07-14] MEDS: APIXABAN 5 MG TAB TUBE SCH ×2 (08:17→21:34)
[2017-07-14] MEDS: METOPROLOL TARTRATE 25 MG TAB TUBE SCH ×3 (08:17→21:34)
[2017-07-14] MEDS: POLYMYXIN B SULFATE/TMP 10 ML OPHT.BTL EACHEYE SCH (08:18)
[2017-07-14] MEDS: [UNRECOGNIZED DRUG - OTHER] PO SCH ×2 (08:34→18:13)
[2017-07-14] MEDS: ALOE PO SCH ×2 (08:34→18:13)
[2017-07-14] MEDS ORDERED: MAGNESIUM SULF 1 GM/DEXTROSE 100 ML IV ONE (08:48)
[2017-07-14] MEDS ORDERED: POTASSIUM CL 20 MEQ/15 ML UDCUP PO ONE ×2 (09:00→17:45)
--- NOTE | 2017-07-14 10:11 | PDCARPN ---
Cardiology Progress Note Chief Complaint: AF RVR Assessment/Plan: Assessment: 67 y/o M PMH recent nasopharyngeal CA with recent completion of chemo/XRT , CAD/previous MT PCI to unknown vessels 10 years ago, dyslipidemia, htn, here after being noted to have high HR and hypotensive at [facility]. Additionally, he has been noting worsening peripheral edema over the past 3 weeks. He was found to be in AF RVR in ED. CTA of chest found no PE and coronary atherosclerosis. Echo from 07/12 found low normal EF 50%, severely dilated LA, mild-mod dilated RA, mod MR, mild TR, RVSP 28. #. AF RVR: unknown chronicity patient is largely asymptomatic without palpitations but does note some TALBOT [id number] of at least 3 and started on Eliquis aiming currently for rate control increase Metoprolol and add short acting Dilt if that fails to control rate, then we will proceed to ANDREZ-guided DCCV #. CAD: no symptoms suggestive of angina continue medical management (resume home statin once dose confirmed) #. peripheral edema/DCHF: likely from AF RVR edema improved with one dose IV lasix yesterday will add another dose today IV lasix and likely can transition to PO tomorrow #. hypokalemia: on repletion protocol #. anemia/pancytopenia: likely 2/2 chemotx ? if transfusion necessitated #. odynophagia: 2/[address] Presley has cleared to undergo ANDREZ if indicated pt still reports irritation with increased mucous production #. mod MR: will need follow up echo in 1-2 years Plan: - IV lasix today - add short acting PO Dilt by tube or PO - ? if blood transfusion necessary/ will also hospital med to determine - if rate not controlled by AM tomorrow, then will proceed to ANDREZ-guided cardioversion 07/14/17 09:56 07/14/17 10:13 Subjective: Feels OK. Edema improved. No palps, dyspnea, pnd/orthopnea, presyncope/syncope. Feels like he could walk around without difficulty. Feels irritation with swallowing and increased mucous production. Feels what limits his ability to swallow is his fear of discomfort. Reviewed/Discussed With: other (AYDEN Kim) Objective: Vital Signs (8 Hrs) Temp Pulse Resp BP Pulse Ox 07/14/17 07:24 98.6 F 113 H 12 107/73 97 07/14/17 04:00 98.8 F 111 H 16 107/66 93 Intake/Output (24 Hrs) 07/13/17 07/14/17 07/15/17 05:59 05:59 05:59 Intake Total 1540 1800 Output Total 900 1850 Balance 640 -50 Intake: Oral (ml) 600 500 IV Infused (ml) 40 Tube Feeding (ml) 500 500 Tube Flush (ml) 400 800 Output: Urine (ml) 900 1850 Urinal 900 1850 Other: Weight 82.1 kg 80.2 kg Intake Quantity Yes Sufficient Number of Voids 1 Urinal 2 Number of Stools Urinal 1 Result Diagrams: 07/14/17 03:33 07/14/17 03:33 Cardiac Labs: Cardiac Lab Results (72 Hrs) 07/13/17 07/13/17 03:40 00:00 Troponin I < 0.012 0.711 H Telemetry: reviewed- AF RVR at times - Physical Exam Constitutional: no apparent distress Eyes: PERRL, anicteric sclera Cardiovascular: irregularly irregular, No systolic murmur Respiratory: clear to auscultate bilat, no crackles, no wheezes Gastrointestinal: normoactive bowel sounds Skin: warm, other (1+ edema) Neurologic: AAOx3 Psychiatric: cooperative, interactive ICD10 Worksheet Patient Problems: Problems Problem Status Onset Atrial fibrillation with RVR Acute
[2017-07-14] MEDS: FUROSEMIDE 40 MG/4 ML VIAL IVP SCH (10:24)
[2017-07-14] MEDS: DILTIAZEM 30 MG TAB PO SCH ×2 (10:24→13:37)
[2017-07-14] MEDS ORDERED: SENNOSIDES 17.6 MG/10 ML UDL PO PRN (12:32)
[2017-07-14] MEDS ORDERED: POLYETHYLENE GLYCOL 3350 17 GM PKT PO PRN (12:32)
--- NOTE | 2017-07-14 12:35 | SOAPPROG ---
SOAP Progress Note Assessment/Plan: Assessment: CA tongue - s/p combined XRT/chemo. Now in recovery phase from treatment. It is too early for definitive re-eval of status of disease Atrial fib - managed by cardiology Nutrition - has Gtube. Trying to transition to PO. Plan: Medical management of a.fib. Cardioversion/ANDREZ if needed. Will follow with you. Subjective: No new complaints. Happy his leg edema is responding. Objective: Vital Signs Temp Pulse Resp BP Pulse Ox 36.6 C 183 H 20 107/73 96 07/14/17 11:22 07/14/17 11:24 07/14/17 11:22 07/14/17 07:24 07/14/17 11:22 Laboratory Results 07/14/17 03:33 07/14/17 03:33 07/12/17 07/13/17 07/14/17 23:59 23:59 23:59 Intake Total 1140 1550 1830 Output Total 2450 950 Balance 1140 -900 880 PT 13.5 SEC (12.0-15.0) 07/12/17 15:48 INR 1.01 (0.83-1.16) 07/12/17 15:48 Physical Exam - Physical Exam General Appearance: alert, no apparent distress Respiratory: No rales Cardiac/Chest: irregularly irregular Abdomen: normal bowel sounds, other (gtube) ICD10 Worksheet Patient Problems: Problems Problem Status Onset Atrial fibrillation with RVR Acute
[2017-07-14] MEDS: DILTIAZEM 30 MG TAB TUBE SCH ×3 (13:42→23:57)
[2017-07-14] MEDS ORDERED: FUROSEMIDE 40 MG/4 ML VIAL IVP SCH (15:00)
--- NOTE | 2017-07-14 15:25 | HOSPPROG ---
Hospitalist Progress Note Assessment/Plan: #New onset Afib #Pedal Edema #Mild Hypotension, likely due to Cardizem #Nasopharyngeal Carcinoma #Dysphagia with chronic PEG tube, transitioning to orals #Pancytopenia, Macrocytosis #Hypokalemia, replacing per protocol #chronic renal failure, stage III Plan: Cardioversion tomorrow, cont medical mgmt (BB, CCB, AC) additional Lasix today, edema is improving His Hgb is 7.9, feels better, given his volume status, will hold of on PRBC transfusion for now. Recheck tomorrow. B12 and Folate are unremarkable Nutrition consult, cont tube feeds Subjective: Feels better. Cardioversion tomorrow. no cp or sob. pedal edema is improving as well. Objective: Vital Signs Temp Pulse Resp BP Pulse Ox 36.6 C 105 H 20 101/66 96 07/14/17 11:22 07/14/17 13:42 07/14/17 11:22 07/14/17 13:42 07/14/17 11:22 Laboratory Results 07/14/17 03:33 07/14/17 03:33 07/13/17 07/14/17 07/15/17 05:59 05:59 05:59 Intake Total 1540 1800 1180 Output Total 900 1850 650 Balance 640 -50 530 PT 13.5 SEC (12.0-15.0) 07/12/17 15:48 INR 1.01 (0.83-1.16) 07/12/17 15:48 - Physical Exam Constitutional: no apparent distress, appears nourished Eyes: PERRL, EOMI Ears, Nose, Mouth, Throat: moist mucous membranes Cardiovascular: irregularly irregular Respiratory: no respiratory distress Gastrointestinal: normoactive bowel sounds, soft, non-tender abdomen Skin: warm Neurologic: AAOx3 Psychiatric: interacting appropriately, not anxious, not encephalopathic Lymph, Heme, Immunologic: No petechiae ICD10 Worksheet Patient Problems: Problems Problem Status Onset Atrial fibrillation with RVR Acute
[2017-07-14] MEDS ORDERED: NS 1,000 ML IV ONE (15:40)
[2017-07-14] MEDS ORDERED: POTASSIUM CL 20 MEQ/15 ML UDCUP TUBE ONE (17:45)
[2017-07-14] MEDS: FAMOTIDINE 20 MG TAB TUBE PRN (21:35)
[2017-07-15 04:39] LABS: INR 1.11 (0.83-1.16); PROTIME(PATIENT) 14.5 SEC (12.0-15.0)
[2017-07-15] MEDS ORDERED: ATROPINE SULFATE 1 MG/10 ML SYR IVP ONE (06:00)
[2017-07-15] MEDS ORDERED: NS 1,000 ML IV ONE (06:00)
[2017-07-15 07:31] VITALS: BP 123/66
[2017-07-15] MEDS: DILTIAZEM 30 MG TAB TUBE SCH (07:49)
[2017-07-15] MEDS ORDERED: ATORVASTATIN CALCIUM 40 MG TAB PO SCH (09:00)
[2017-07-15] MEDS: TAMSULOSIN HCL 0.4 MG CAP PO SCH (09:50)
[2017-07-15] MEDS: METOPROLOL TARTRATE 25 MG TAB TUBE SCH (09:50)
[2017-07-15] MEDS: APIXABAN 5 MG TAB TUBE SCH (09:50)
[2017-07-15] MEDS ORDERED: DIGOXIN 50 MCG/ML UDSYR TUBE SCH (10:00)
[2017-07-15] MEDS ORDERED: DIGOXIN 50 MCG/ML UDSYR PO SCH (10:00)
--- NOTE | 2017-07-15 11:06 | GDS ---
[f rep st] DISCHARGE SUMMARY DISCHARGE DIAGNOSES: 1. Atrial fibrillation with rapid ventricular rates of unknown duration. 2. Systolic congestive heart failure, likely secondary to atrial fibrillation with rapid ventricular response. 3. History of coronary artery disease with myocardial infarction and percutaneous coronary intervent ion remotely. 4. 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 5. Hypertension. 6. Dyslipidemia. 7. Chronic kidney disease, stage 3 with current creatinine of 0.8. 8. Recent tear duct infection. 9. Chronic pain with continuous opiate dependency. 10. Moderate mitral regurgitation. PROCEDURES: 1. 07/12/2017: Chest x-ray, which showed borderline cardiomegaly with a discoid subsegmental atelec tasis at the left lung base. 2. 07/12/2017: CTA of chest which had no visible PE. Mild coronary atherosclerosis. 3. 07/12/2017: Echocardiogram, which showed EF of 50% with normal RV size and function, severely dil ated left atrium, udhy-il-riyhotwnhy dilated right atrium, moderate MR, mild TR, and RVSP of 28. CONSULTATIONS: 1. Hospital Medicine. 2. Oncology. BRIEF HISTORY: Please see dictated H and P for complete details. In brief the patient is a 67-year- old male with a recent diagnosis of nasopharyngeal cancer (status post completion of chemo and radiat ion on )2018, CAD, dyslipidemia, and hypertension, who was noted to have elevated heart rates a t [facility]. He was admitted due to the above symptoms on 07/12/2017. He was tr eated with diuresis and rate control. HOSPITAL COURSE BY PROBLEM: 1. Atrial fibrillation/RVR: He has been started on Dilt IR by tube and digoxin for rate control. H is metoprolol dose has been titrated. For his [id number] of 3 (given age, hypertension, and vascul ar disease), he has been started on Eliquis. He is given a prescription card for a free sample for t he next 30 days. 2. Peripheral edema: Likely due to AF with RVR. He has diuresed well on IV Lasix. He will be disc harged on p.o. Lasix. 3. Odynophagia: Secondary to recent chemotherapy and radiation. Dr. Presley has encouraged increas ing p.o. intake. Some of his meds are still deliverable by tube, but patient should start p.o. as so on as odynophagia improves. 4. Hypokalemia: Was placed on repletion protocol. 5. Moderate MR: He will need surveillance echoes in 1 year. PHYSICAL EXAMINATION: VITAL SIGNS: On day of discharge, blood pressure of 123/66, heart rate of 142 , respirations 14, O2 saturation 96% on room air, temp of 98 degrees Fahrenheit. GENERAL: A pleasan t male, somewhat agitated. HEART: Irregularly irregular. LUNGS: Clear. EXTREMITIES: Bilateral w ith resolution of edema. LABORATORY DATA: CBC with WBC 4.12, hemoglobin 7.9, hematocrit 23.2, platelet count of 85. BMP with sodium 137, potassium 4, chloride 98, CO2 32, BUN 16, creatinine 0.9, glucose 83. Results pending: None DIET: As tolerated. ACTIVITY: As tolerated. DISCHARGE MEDICATIONS: Please see med reconciliation for complete details. He may continue his lokesh a, MiraLAX, Lipitor, milk of magnesia, Flomax, OraMagic Rx oral rinse, ranitidine, polymyxin, trimeth oprim, scopolamine patch, aspirin, fentanyl, and morphine. His metoprolol dose has been increased t o 25 mg per tube t.i.d. Lasix should be scheduled at 20 mg p.o. or tube daily, Dilt IR 30 mg tube t. i.d., digoxin 125 mcg per tube daily, Eliquis 5 mg 2 b.i.d.. DISCHARGE INSTRUCTIONS: 1. Follow up with Dr. Kebede in 1-2 weeks' time for anemia. 2. Follow up with [facility] in 2 weeks' time as scheduled. /[id number]/MODL
[2017-07-15] MEDS: POLYMYXIN B SULFATE/TMP 10 ML OPHT.BTL EACHEYE SCH (11:20)
[2017-07-15] MEDS: FUROSEMIDE 40 MG/4 ML VIAL IVP SCH (11:21)
== END 2017-07-15 12:08 | disposition home or self-care (01) | DRG 309 ==
LOC: OBSVTOIN 17:25 → INTOOBSV 17:25 → F2W 19:32
PROVIDERS: ADMIT Internal Medicine; ATTEND Internal Medicine
DX: I48.91 Unspecified atrial fibrillation (principal); I13.0 Hypertensive heart and chronic kidney disease with heart failure and stage 1 through stage 4 chronic kidney disease, or unspecified chronic kidney disease; I50.20 Unspecified systolic (congestive) heart failure; C79.89 Secondary malignant neoplasm of other specified sites; F11.20 Opioid dependence, uncomplicated; Z93.1 Gastrostomy status; I25.10 Atherosclerotic heart disease of native coronary artery without angina pectoris; I25.2 Old myocardial infarction; E78.5 Hyperlipidemia, unspecified; N18.3 Chronic kidney disease, stage 3 (moderate); G89.29 Other chronic pain; I34.0 Nonrheumatic mitral (valve) insufficiency; E87.6 Hypokalemia; R13.19 Other dysphagia; Z85.820 Personal history of malignant melanoma of skin
CPT/HCPCS: 82607-90; G0378; J1160; J1650; J1940; J2405; J3475; Q9967

== ENCOUNTER 2017-07-27 11:58 | Day surgery (SDC) | payer OTHER, MEDICARE ==
[2017-07-27] MEDS ORDERED: fentaNYL 100 MCG/2 ML INJ IVP ONE (12:06)
[2017-07-27] MEDS ORDERED: ATROPINE SULFATE 1 MG/10 ML SYR IVP ONE (12:06)
[2017-07-27] MEDS ORDERED: BENZOCAINE UNIT DOSE SPRAY HURRICAINE MM ONE (12:06)
[2017-07-27] MEDS ORDERED: MIDAZOLAM 2 MG/2 ML VIAL IVP ONE (12:06)
[2017-07-27] MEDS ORDERED: NS 500 ML IV ONE (12:06)
--- NOTE | 2017-07-27 12:32 | CPEKG ---
Heart Rate: 108 RR Interval: 556 QRSD Interval: 84 QT Interval: 340 QTC Interval: 456 QRS [place]: 13 T Wave [place]: 42 EKG Severity - ABNORMAL ECG - EKG Impression: ATRIAL FIBRILLATION, V-RATE 83-143 EKG Impression: Low voltage standard leads EKG Impression: No significant change compared to July 12, 2017, except no ventricular ectopy Electronically Signed By: Yoan Mccann 27-Jul-2017 17:48:12
[2017-07-27 13:01] LABS: INR 1.27 (0.83-1.16); PROTIME(PATIENT) 16.1 SEC (12.0-15.0)
--- NOTE | 2017-07-27 13:15 | PDHPUP ---
History & Physical Update H&P update statement: This history and physical update is based on an assessment of the patient which was completed after admission or registration (within 24 hours), but prior to the surgery/procedure. H&P update: H&P reviewed & patient examined, no change in patient's condition since H&P completed
[2017-07-27] MEDS ORDERED: LIDOCAINE 2% 5 ML SDV ONE (13:44)
[2017-07-27] MEDS ORDERED: PROPOFOL 200 MG/20 ML VIAL ONE (13:44)
--- NOTE | 2017-07-27 13:47 | PDANEPAE ---
ANE History of Present Illness Patient presents in a-fib for ANDREZ/cardioversion ANE Past Medical History - Cardiovascular History Hx Hypertension: Yes Hx Arrhythmias: Yes Hx Chest Pain: No Hx Coronary Artery / Peripheral Vascular Disease: Yes Hx CHF / Valvular Disease: No Hx Palpitations: No - Pulmonary History Hx COPD: No Hx Asthma/Reactive Airway Disease: No Hx Recent Upper Respiratory Infection: No Hx Oxygen in Use at Home: No Hx Sleep Apnea: No - Neurologic History Hx Cerebrovascular Accident: No Hx Seizures: No Hx Dementia: No - Endocrine History Hx Diabetes: No - Renal History Hx Renal Disorders: No - Liver History Hx Hepatic Disorders: No - Neurological & Psychiatric Hx Hx Neurological and Psychiatric Disorders: Yes - Cancer History Hx Cancer: Yes Cancer History Comment: oropharangeal cancer - Congenital Disorder History Hx Congenital Disorders: No - GI History Hx Gastrointestinal Disorders: No - Chronic Pain History Chronic Pain: Yes - Surgical History Prior Surgeries: hernia 2014 ANE Review of Systems Review of Systems: ANE Patient History - Allergies Allergies/Adverse Reactions: No Allergies [NKDA] Allergy (Verified 07/12/17 15:15) - Home Medications Home medications: home medication list seen and reviewed Home Medications: Apixaban [Eliquis] 5 mg PO BID 07/27/17 [Last Taken Unknown] Aspirin [Aspirin 325 mg (*)] 325 mg PO DAILY 07/27/17 [Last Taken Unknown] Atorvastatin Calcium [Lipitor 40 mg (*)] 40 mg PO DAILY 07/27/17 [Last Taken Unknown] Digoxin [Digoxin 50 MCG/ML Oral Liquid (*)] 3 ml PO DAILY10 07/27/17 [Last Taken Unknown] Diltiazem [Cardizem Immediate Release] 30 mg PO TID 07/27/17 [Last Taken Unknown ] Furosemide [Lasix 40 MG (*)] 40 mg PO DAILY 07/27/17 [Last Taken Unknown] Metoprolol Tartrate [Lopressor 25 mg (*)] 25 mg PO TID 07/27/17 [Last Taken Unknown] Scopolamine [Transderm-Scop] 1 each TD Q72H 07/27/17 [Last Taken Unknown] Tamsulosin HCl [Flomax 0.4 MG (*)] 0.4 mg PO DAILY 07/27/17 [Last Taken Unknown] - NPO status NPO Status: no food or drink >8 hours - Smoking Hx Smoking Status: Never smoked - Family Anes Hx Family Hx Anesthesia Complications: no ANE Labs/Vital Signs - Labs Result Diagrams: 07/27/17 12:42 - Vital Signs Height: 175.26 cm Weight: 77.111 kg ANE Physical Exam - Airway Mallampati Score: Unable to assesss Mouth exam: normal dental/mouth exam - Pulmonary Pulmonary: no respiratory distress - Cardiovascular Cardiovascular: irregularly irregular - ASA Status ASA Status: III ANE Anesthesia Plan Anesthesia Plan: GA with mask (rba discussed)
--- NOTE | 2017-07-27 14:09 | POSTANESTH ---
Post Anesthetic Evaluation Cardiovascular Status: Similar to Pre-Op Cond Respiratory Status: Similar to Pre-op Cond. Level of Consciousness/Mental Status: Mildly Sleepy, Arousable Pain Control: Adequate, Prn Tx Ordered Nausea/Vomiting Control: Adequate, Prn Tx Ordered Complications Possibly Related to Anesthesia: None Noted
--- NOTE | 2017-07-27 14:10 | CPEKG ---
Heart Rate: 80 RR Interval: 750 P-R Interval: 196 QRSD Interval: 86 QT Interval: 396 QTC Interval: 457 P [place]: 63 QRS [place]: 16 T Wave [place]: 32 EKG Severity - OTHERWISE NORMAL ECG - EKG Impression: SINUS RHYTHM EKG Impression: Possible left atrial abnormality EKG Impression: Low voltage standard leads. EKG Impression: Resolution of atrial fibrillation since July 27, 2017: 12:30 Electronically Signed By: Yoan Mccann 27-Jul-2017 17:47:23
== END 2017-07-27 20:07 | disposition home or self-care (01) ==
LOC: FCATH 11:58
PROVIDERS: ATTEND Internal Medicine Cardiovascular Disease
PROC: 5A2204Z Restoration of Cardiac Rhythm, Single (ICD-10-PCS; principal; 2017-07-27)
PROC: B245ZZ4 Ultrasonography of Left Heart, Transesophageal (ICD-10-PCS; principal; 2017-07-27)
DX: I48.91 Unspecified atrial fibrillation (principal); I25.10 Atherosclerotic heart disease of native coronary artery without angina pectoris; N18.3 Chronic kidney disease, stage 3 (moderate); Z85.01 Personal history of malignant neoplasm of esophagus; Z97.8 Presence of other specified devices
CPT/HCPCS: J2704